=== PATIENT | female | born 1965 | race Caucasian/White ===

== ENCOUNTER → 2018-12-08 | Outpatient (CLI) | payer SELFPAY ==
--- NOTE | 2018-12-08 16:10 | KCIC ---
RS Compliance Statement: One or more of the following individualized dose reduction techniques were utilized for this examination: 1. Automated exposure control 2. Adjustment of the mA and/or kV according to patient size 3. Use of iterative reconstruction technique Coronary calcium score CT chest without contrast History: 53-year-old female with paternal and maternal family history of CAD. Technique: With retrospective electrocardiogram gating axial reconstructed noncontrast images of the chest at the level of the coronary arteries was performed. Images were post processed on workstation and calcium score calculated using the modified Agatston Janowitz protocol. Findings: Total coronary calcium score is 0. This places the patient in the 0th percentile rank which means that 100% of females between the ages of 51-55 have a higher calcium score than this patient. This is a no identifiable plaque burden and very low cardiovascular disease risk. This is based on the calcium score of 0 of the left main coronary artery, 0 of the left anterior descending artery, score of 0 of the left circumflex artery and score of 0 of the right coronary artery. Noncoronary findings demonstrate normal cardiac size. No pericardial effusion. Upper abdomen unremarkable. The visualized lungs are clear. No pleural abnormality. IMPRESSION: Patient's total calcium score is 0. Electronically signed by: David Pisano MD (12/08/2018 4:07 PM) [id number]
== END | disposition home or self-care (01) ==
LOC: KCIC CT 14:57
PROVIDERS: ATTEND Physician Assistant Medical
DX: Z13.6 Encounter for screening for cardiovascular disorders (principal); J45.909 Unspecified asthma, uncomplicated; F17.210 Nicotine dependence, cigarettes, uncomplicated; Z82.49 Family history of ischemic heart disease and other diseases of the circulatory system
CPT/HCPCS: 75571